=== PATIENT | male | born 1935 | race Caucasian/White ===

== ENCOUNTER 2016-05-24 08:00 | Emergency (ER) | payer OTHER ==
--- NOTE | 2016-05-24 10:40 | DIAGNOSTIC IMAGING REPORT ---
PROCEDURE: XR CHEST 1 VIEW INDICATION: HYPOTHERMIA TECHNIQUE: Portable AP view 10:00 a.m. COMPARISON: None. FINDINGS: Lungs are clear of infiltrate. There is a 2 cm nodule right lower lobe. Heart and mediastinum are normal. Thorax is normal. IMPRESSION: 1. No acute infiltrates. 2 cm right lower lobe nodule.
--- NOTE | 2016-05-24 11:21 | DIAGNOSTIC IMAGING REPORT ---
PROCEDURE: XR FOOT 3 VIEWS - LEFT INDICATION: TRAUMA/INJURY, initial encounter TECHNIQUE: Three views. COMPARISON: None. FINDINGS: Osteopenia. No fracture or dislocation. Severe first MTP joint degenerative changes. Small plantar calcaneal spur. Soft tissues are unremarkable. IMPRESSION: 1. No acute changes 2. 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
--- NOTE | 2016-05-24 14:53 | ED CLINICAL REPORT ---
Clinical Report - Physicians/Mid Levels [facility] [address] [place] [address] 05/24/2016 8:01 Patient: EDITH JUAN Time Seen: 08:24. Arrived- By private vehicle. Historian- patient. History limited by dementia. Physical Exam limited by dementia. HISTORY OF PRESENT ILLNESS Chief Complaint: hypothermia. This started last night and is still present. At its maximum, severity described as moderate. When seen in the E.D., severity described as moderate. Modifying factors. Not worsened by anything. Not relieved by anything. The patient has had fatigue, muscle aches and weakness. (patient is brought in by EMS. Apparently he has a history of dementia. EMS report that his daughter heard him moving around and saw the light turned on around midnight. Apparently she did not realize that he had departed their home. The patient does not recall the events of the night but apparently he was outside for approximately 5 hours. EMS report that he has abrasions on his legs and feet.). Similar symptoms previously: None. Recent medical care: Not recently seen/assessed. REVIEW OF SYSTEMS No cough, difficulty breathing, chest pain, nausea or vomiting. He has had chills and difficulty with urination (chronic). He sustained multiple small skin lacerations. All systems otherwise negative, except as recorded above. PAST HISTORY Hypertension. Elevated Cholesterol. Neuropathy. Diabetes Mellitus. Dementia. Medications: Lantus Subcutaneous. Atorvastatin Calcium Oral. Flomax Oral. Pristiq Oral. AmLODIPine Besylate Oral. Allergies: No Known Drug Allergy. SOCIAL HISTORY Smoker - current status unknown. He lives with a family member. ADDITIONAL NOTES The nursing notes have been reviewed. PHYSICAL EXAM Vital Signs: 05/24/2016 08:13 BP: 130/82. HR: 98. RR: 16. O2 saturation: 99%. Temp: 88.6 F. Have been reviewed. Appearance: Alert. He is disoriented and confused. Eyes: Pupils equal, round and reactive to light. ENT: Pharynx normal. Neck: Normal inspection. Neck supple. No JVD or carotid bruit. CVS: Normal heart rate and rhythm. Heart sounds normal. Respiratory: No respiratory distress. Breath sounds normal. Abdomen: No visible injury. Soft and nontender. Bowel sounds normal. No organomegaly. No mass. Skin: The patient has multiple medium superficial abrasions on the right knee, right foot, left elbow, left knee and left foot. LABS, X-RAYS, AND EKG Chest X-ray: No infiltrate. (1. No acute infiltrates. 2 cm right lower lobe nodule.). Views: AP. Technique: good. The X-rays were independently viewed by me, interpreted by the radiologist and discussed with the radiologist. Prior films were not available for comparison. Interpretation time: 1015. Lt Toes X-ray: No fracture. No air in the soft tissue. Severe degenerative joint disease. The X-rays were independently viewed by me and interpreted contemporaneously by me. Prior films were not available for comparison. Laboratory Tests: CBC w Diff: (MIKE: 05/24/2016 09:25) ( MsgRcvd 05/24/2016 09:41) Final results Test Result Flag Units (Reference) WHITE BLOOD COUNT 19.1 H K/uL (4.5-11.5) RED BLOOD COUNT 5.66 M/uL (4.50-5.90) HEMOGLOBIN 16.0 gm/dL (13.5-17.5) HEMATOCRIT 48.6 % (41.0-53.0) MEAN CELL VOLUME 86 fL (80-100) MEAN CORPUSCULAR HGB 28 pg (26-34) MEAN CORPUSCULAR HGB CONC 33 g/dL (31-37) RED CELL DISTRIBUTION WIDTH 12.8 % (11.6-14.8) PLATELET COUNT 249 K/uL (150-400) NEUTROPHIL % 87.1 H % (50-75) LYMPH % 4.7 L % (25-40) MONO % 8.0 % (3-14) EOSINOPHIL % 0.1 % (0-4) BASOPHIL % 0.1 % (0-2) PT with INR: (MIKE: 05/24/2016 09:25) ( MsgRcvd 05/24/2016 09:52) Final results Test Result Flag Units (Reference) INR 1.0 (0.8-1.2) Low Intensity Therapy: INR 1.5-2.0 PT range 18.5-23.1Mod.Intensity Therapy: INR 2.0-3.0 PT range 23.1-31.5High Intensity Therapy: INR 2.5-3.5 PT range 27.4-35.5High Intensity Therapy 2: INR 3.0-4.0 PT range 31.5-39.3 APTT 26 SECONDS (24-34) CMP: (MIKE: 05/24/2016 09:25) ( MsgRcvd 05/24/2016 10:28) Final results Test Result Flag Units (Reference) GLUCOSE 120 H mg/dL (70-110) BUN 19 H mg/dL (7-18) CREATININE 1.1 mg/dL (0.6-1.3) Estimated GFR >60 mL/min Estimated GFR- >60 mL/min Note: Persistent reduction over 3 months in eGFR<60 mL/min/1.73 m2 defines CKD. Patients with eGFR values>=60 mL/min/1.73 m2 may also have CKD if evidence ofpersistent proteinuria. Additional information may be foundat www.kidney.org. SODIUM 141 mmol/L (136-145) POTASSIUM 4.5 mmol/L (3.5-5.1) CHLORIDE 105 mmol/L (98-107) CARBON DIOXIDE 26 mmol/L (21-32) CALCIUM 8.7 mg/dL (8.5-10.1) TOTAL PROTEIN 7.3 g/dL (6.4-8.2) ALBUMIN 4.0 g/dL (3.3-5.0) BILIRUBIN, TOTAL 0.4 mg/dL (0.0-1.0) ALKALINE PHOSPHATASE 113 U/L (46-116) AST (SGOT) 26 U/L (15-37) ALT (SGPT) 28 U/L (12-78) LIPASE 655 H U/L (73-393) AMYLASE 99 U/L (25-115) TROPONIN I <0.05 ng/mL (0.00-1.5) TROPONIN REFERENCE RANGE:<0.1 NEGATIVE0.1-1.5 INDETERMINANT>1.5 POSITIVE CPK 1164 H U/L (24-260) CK-MB 4.9 H ng/mL (0.5-3.2) %CKMB 0.4 % (0.0-4.0) . PROGRESS AND PROCEDURES Course of Care: 09:09 05/24/16. the case was discussed with Dr. Jarquin at change of shift. We reviewed the patient's history and exam findings. He will follow up on the results of the patient's studies and will arrange an appropriate disposition for him. - MW 14:52 05/24/16. Pt feeling much better and back to baseline per daughters. WBC elevated, but no S/S of infection and no PNA, cellulitis, or UTI. Will f/u w/ PCP. 05/24/2016 13:33 BP: 129/51. HR: 88. RR: 16. O2 saturation: 98%. 05/24/2016 12:37 Temp: 97.7 F. Vital Signs: have been reviewed as normal. Disposition: Discharged home in good and improved condition. Condition: good. CLINICAL IMPRESSION Moderate hypothermia secondary to exposure. Multiple superficial abrasions to the right knee and left knee.Treatment of abrasion not delayed. No infection or abrasion with foreign body present. Mild leukocytosis. Neuropathy associated with diabetes type 2. INSTRUCTIONS Your Current Medications: CONTINUE TAKING THE FOLLOWING MEDICATIONS: AmLODIPine Besylate Oral. Atorvastatin Calcium Oral. Flomax Oral. Lantus Subcutaneous. Pristiq Oral. Prescription Medications: Bactroban 2% ointment: apply small amount to affected area three times daily until symptoms better. Dispense twenty-two (22) grams. No refills. Substitution is permissible. Diclofenac 50 mg tablets: take 1 tablet orally every 8 hours as needed for pain. Dispense fifteen (15). No refill. Gabapentin 300 mg capsules: take 1 orally every 8 hours. Dispense forty-five (45). Follow-up: Follow up with your doctor in about two days. Call for an appointment. (Electronically signed by Ruben Jarquin Dr. 05/24/2016 22:01)
--- NOTE | 2016-05-24 14:53 | ED NURSING NOTES ---
Clinical Report - Nurses [facility] [address] [place] [address] 05/24/2016 8:01 Patient: EDITH JUAN TRIAGE Triage time 0810. Acuity: LEVEL 2. Chief Complaint: FALL (unknown). Alert. --08:16 Nancie Diaz 08:13 05/24/16. BP: 130/82. HR: 98. RR: 16. O2 saturation: 99%. Temp: 88.6 F. Pain level now 0/10. --08:16 Nancie Diaz 08:25. --09:12 Nancie Diaz. Weight: 102 kg estimated. Height/Length: 72 inches Estimated. BMI: 30.5. --08:12 Nancie Diaz. Medications AmLODIPine Besylate Oral. --09:09 Nancie Diaz Pristiq Oral. --09:09 Nancie Diaz Flomax Oral. --09:09 Nancie Diaz Atorvastatin Calcium Oral. --09:09 Nancie Diaz Lantus Subcutaneous. --09:10 Nancie Diaz The following entry was struck by Nancie Diaz, 09:09 (05/24/16) Reason - other(family here with info). <<STRICKEN ENTRY-- Unknown. --08:15 Nancie Diaz --END STRIKE>>. Allergies No Known Drug Allergy. --09:10 Nancie Diaz The following entry was struck by Nancie Diaz, 09:10 (05/24/16) Reason - other. <<STRICKEN ENTRY-- Unable to Obtain. --08:15 Nancie iDaz --END STRIKE>>. History Arrived by EMS. Historian: EMS. Location of injuries: left elbow, right knee, left knee and left foot. ( Pt found sitting in driveway this am at home, dementia, hypothermic, injuries as noted). Treatment MANAGER BUSINESS OPERATIONS: (warm packs). Trauma activation: Pre-hospital notification of patient arrival was received. --08:16 Nancie Diaz SOCIAL HX: ( Alethea vo applied immediately). --09:12 Nancie Diaz. PROBLEMS: Hypertension. Elevated Cholesterol. Neuropathy. Diabetes Mellitus. Dementia. --09:10 Nancie Diaz. Interventions ID band on patient. To treatment room. --08:16 Nancie Diaz. PHYSICAL ASSESSMENT To room via stretcher. Patient gowned. GENERAL / NEURO / PSYCH: Alert. Appears in distress. He has had numbness (bilat lower extremities 2nd diabetes). HEENT: Pupils equal, round and reactive to light. Head non-tender. RESPIRATORY: Respirations not labored. Chest nontender. Breath sounds within normal limits. CVS: Normal heart rate and rhythm. Pulses within normal limits. Capillary refill is greater than 2 seconds. GI / : Abdominal distention. Abdomen soft and nontender. EXTREMITIES: Left elbow: swelling, ecchymosis and multiple small abrasions. Right knee: swelling, ecchymosis and multiple large abrasions. Left knee: swelling, ecchymosis and multiple large abrasions. Left foot: ecchymosis and multiple small abrasions. SKIN: Skin is cool. ( mottled). --08:25 Nancie Diaz. NURSING PROGRESS NOTES 09:05/24/2016 Site #1 started prior to arrival by EMS via IV in the left antecubital space with an 18g angiocath. --09:06 Nancie Diaz 09:05/24/2016 Started bag #1 500 mL IV Fluids IV NS (Saline); bolus of 500 mL wide open via site #1. Confirmed 5 rights. IV patency established. IV site checked: no pain, redness, or swelling. IV flushed thoroughly pre- and post-medication administration. --09:07 Nancie Diaz 09:11 05/24/16. BP: 125/49. HR: 91. RR: 20. O2 saturation: 96%. Temp: 92.2 F. Pain level now 0/10. --09:12 Nancie Diza Cardiac rhythm: normal sinus rhythm. Reassessment after intervention. He is calm and resting quietly. Overall patient status is improved- he states feels better. ( Family here and at bedside). --09:12 Nancie Diaz The patient is calm and resting quietly. Overall patient status is improved- he states feels better. ( Family remains at bedside). GENERAL / NEURO / PSYCH: Alert. Patient and family informed about reason for wait and about plan of care. Patient waiting for lab and radiology results. --10:11 Nancie Diaz 10:26 05/24/16. Temp: 95.5 F. --10:26 Nancie Diaz 10:44 05/24/2016 Started bag #1 1000 mL IV Fluids IV NS (Saline); at 200 mL/hr over 1 hour(s) via site #1 --10:44 Nancie Diaz 12:37 05/24/16. Temp: 97.7 F (oral). --12:38 Nancie Diaz ( Pt much improved, ate entire lunch tray, joking with family and staff, wee bag placed on penis for UA collection, able to stand at bedside for bed changing, alethea acosta). --12:38 Nancie Diaz 13:33 05/24/16. BP: 129/51. HR: 88. RR: 16. O2 saturation: 98%. --13:33 Nancie Diaz Overall patient status is improved- he states feels better. --13:33 Nancie Diaz 15:05/24/2016 Site #1 removed upon discharge. Pressure dressing applied. --15: Nancie Diaz 15:05/24/2016 IV Fluids IV NS Discontinued: bag #1 completed upon discharge. Total amount infused: 500 mL. --15: Nanice Diaz 15:05/24/2016 IV Fluids IV NS Discontinued: bag #1 completed. Total amount infused: 500 mL. IV patency established. IV site checked: no pain, redness, or swelling. IV flushed thoroughly. --15: Nancie Diaz. DISPOSITION / DISCHARGE Departure time: 1530. Condition at departure: improved and stable. Discharge instructions provided and reviewed with the family. Reviewed medication(s). Family verbalized understanding. Written instructions provided in Swedish. The patient was discharged by the physician. He was discharged home and accompanied by family. He left the Emergency Department in a wheelchair and via private vehicle. Family member driving. --15:59 Nancie Diaz 15:58 05/24/16. BP: 128/56. HR: 88. RR: 16. O2 saturation: 99%. Temp: 97.7 F. Pain level now 06/23. --15:59 Nancie Diaz. Locked/Released at 05/24/2016 15:59 by Nancie Diaz,
--- NOTE | 2016-05-24 14:53 | ED NURSING NOTES ---
Clinical Report - Nurses [facility] [address] [place] [address] 05/24/2016 8:01 Patient: EDITH JUAN TRIAGE Triage time 0810. Acuity: LEVEL 2. Chief Complaint: FALL (unknown). Alert. --08:16 Nancie Diaz 08:13 05/24/16. BP: 130/82. HR: 98. RR: 16. O2 saturation: 99%. Temp: 88.6 F. Pain level now 0/10. --08:16 Nancie Diaz 08:25. --09:12 Nancie Diaz. Weight: 102 kg estimated. Height/Length: 72 inches Estimated. BMI: 30.5. --08:12 Nancie Diaz. Medications AmLODIPine Besylate Oral. --09:09 Nancie Diaz Pristiq Oral. --09:09 Nancie Diaz Flomax Oral. --09:09 Nancie Diaz Atorvastatin Calcium Oral. --09:09 Nancie Diaz Lantus Subcutaneous. --09:10 Nancie Diaz The following entry was struck by Nancie Diaz, 09:09 (05/24/16) Reason - other(family here with info). <<STRICKEN ENTRY-- Unknown. --08:15 Nancie Diaz --END STRIKE>>. Allergies No Known Drug Allergy. --09:10 Nancie Diaz The following entry was struck by Nancie Diaz, 09:10 (05/24/16) Reason - other. <<STRICKEN ENTRY-- Unable to Obtain. --08:15 Nancie Diaz --END STRIKE>>. History Arrived by EMS. Historian: EMS. Location of injuries: left elbow, right knee, left knee and left foot. ( Pt found sitting in driveway this am at home, dementia, hypothermic, injuries as noted). Treatment DENTAL SPECIALIST: (warm packs). Trauma activation: Pre-hospital notification of patient arrival was received. --08:16 Nancie Diaz SOCIAL HX: ( Alethea vo applied immediately). --09:12 Nancie Diaz. PROBLEMS: Hypertension. Elevated Cholesterol. Neuropathy. Diabetes Mellitus. Dementia. --09:10 Nancie Diaz. Interventions ID band on patient. To treatment room. --08:16 Nancie Diaz. PHYSICAL ASSESSMENT To room via stretcher. Patient gowned. GENERAL / NEURO / PSYCH: Alert. Appears in distress. He has had numbness (bilat lower extremities 2nd diabetes). HEENT: Pupils equal, round and reactive to light. Head non-tender. RESPIRATORY: Respirations not labored. Chest nontender. Breath sounds within normal limits. CVS: Normal heart rate and rhythm. Pulses within normal limits. Capillary refill is greater than 2 seconds. GI / : Abdominal distention. Abdomen soft and nontender. EXTREMITIES: Left elbow: swelling, ecchymosis and multiple small abrasions. Right knee: swelling, ecchymosis and multiple large abrasions. Left knee: swelling, ecchymosis and multiple large abrasions. Left foot: ecchymosis and multiple small abrasions. SKIN: Skin is cool. ( mottled). --08:25 Nancie Diaz. NURSING PROGRESS NOTES 09:05/24/2016 Site #1 started prior to arrival by EMS via IV in the left antecubital space with an 18g angiocath. --09:06 Nancie Diaz 09:05/24/2016 Started bag #1 500 mL IV Fluids IV NS (Saline); bolus of 500 mL wide open via site #1. Confirmed 5 rights. IV patency established. IV site checked: no pain, redness, or swelling. IV flushed thoroughly pre- and post-medication administration. --09:07 Nancie Diaz 09:11 05/24/16. BP: 125/49. HR: 91. RR: 20. O2 saturation: 96%. Temp: 92.2 F. Pain level now 0/10. --09:12 Nancie Diaz Cardiac rhythm: normal sinus rhythm. Reassessment after intervention. He is calm and resting quietly. Overall patient status is improved- he states feels better. ( Family here and at bedside). --09:12 Nancie Diaz The patient is calm and resting quietly. Overall patient status is improved- he states feels better. ( Family remains at bedside). GENERAL / NEURO / PSYCH: Alert. Patient and family informed about reason for wait and about plan of care. Patient waiting for lab and radiology results. --10:11 Nancie Diaz 10:26 05/24/16. Temp: 95.5 F. --10:26 Nancie Diaz 10:44 05/24/2016 Started bag #1 1000 mL IV Fluids IV NS (Saline); at 200 mL/hr over 1 hour(s) via site #1 --10:44 Nancie Diaz 12:37 05/24/16. Temp: 97.7 F (oral). --12:38 Nancie Diaz ( Pt much improved, ate entire lunch tray, joking with family and staff, wee bag placed on penis for UA collection, able to stand at bedside for bed changing, alethea acosta). --12:38 Nancie Diaz 13:33 05/24/16. BP: 129/51. HR: 88. RR: 16. O2 saturation: 98%. --13:33 Nancie Diaz Overall patient status is improved- he states feels better. --13:33 Nancie Diaz 15:05/24/2016 Site #1 removed upon discharge. Pressure dressing applied. --15: Nancie Diaz 15:05/24/2016 IV Fluids IV NS Discontinued: bag #1 completed upon discharge. Total amount infused: 500 mL. --15: Nancie Diaz 15:05/24/2016 IV Fluids IV NS Discontinued: bag #1 completed. Total amount infused: 500 mL. IV patency established. IV site checked: no pain, redness, or swelling. IV flushed thoroughly. --15: Nancie Diaz. DISPOSITION / DISCHARGE Departure time: 1530. Condition at departure: improved and stable. Discharge instructions provided and reviewed with the family. Reviewed medication(s). Family verbalized understanding. Written instructions provided in Divehi. The patient was discharged by the physician. He was discharged home and accompanied by family. He left the Emergency Department in a wheelchair and via private vehicle. Family member driving. --15:59 Nancie Diaz 15:58 05/24/16. BP: 128/56. HR: 88. RR: 16. O2 saturation: 99%. Temp: 97.7 F. Pain level now 06/23. --15:59 Nancie Diaz. Locked/Released at 05/24/2016 15:59 by Nancie Diaz,
--- NOTE | 2016-05-24 14:53 | ED ORDER SUMMARY ---
..... Patient: EDITH JAUN OrderSheet [facility] VisitID: [id number] [address] [place], [place] [id number] 80y, M Registration Date/Time: 05/24/2016 ORDER SHEET Weight: 102.0 kg (estimated) Allergies: No Known Drug Allergy GENERAL ORDERS: Chest 1V Urgent (08:57 05/24/2016 Jamey BROWN) (Ack 9:11 LNations ER Tech1) (10:49 NHouse ER Tech1) Sld Teacher (Continuous) (08:58 05/24/2016 Jamey BROWN) (9:05 EBonham) CBC w Diff Urgent (08:58 05/24/2016 Jamey BROWN) (Ack 9:10 LNations ER Tech1) (10:49 NHouse ER Tech1) CMP Urgent (08:58 05/24/2016 Jamey BROWN) (Ack 9:10 LNations ER Tech1) (10:49 NHouse ER TechSue) UA-Culture if indicated Urgent (08:58 05/24/2016 Jamey BROWN) (Ack 9:10 LNations ER TechSue) (14:44 NHouse ER Tech1) PT with INR Urgent (08:58 05/24/2016 Jamey BROWN) (Ack 9:10 LNations ER Tech1) (10:49 NHouse ER Tech1) PTT Urgent (08:58 05/24/2016 Jamey BROWN) (Ack 9:10 LNations ER Tech1) (10:49 NHouse ER Tech1) Amylase Urgent (08:58 05/24/2016 Jamey BROWN) (Ack 9:10 LNations ER Tech1) (10:49 NHouse ER Tech1) Lipase Urgent (08:58 05/24/2016 Jamey BROWN) (Ack 9:11 LNations ER TechSue) (10:49 NHouse ER Tech1) CPK Urgent (08:58 05/24/2016 Jamey BROWN) (Ack 9:11 LNations ER TechSue) (10:49 NHouse ER TechSue) Troponin-I Urgent (08:58 05/24/2016 Jamey BROWN) (Ack 9:11 LNations ER Tech1) (10:49 NHouse ER Tech1) Oxygen (2 L/min) (NC) (08:58 05/24/2016 Jamey BROWN) (9:05 [facility]) Pulse oximeter (08:58 05/24/2016 Jamey BROWN) (9:[facility] EKG - ER Stat (08:58 05/24/2016 Jamey BROWN) (Ack 9:09 LNations ER Tech1) (9:23 LNations ER Tech1) GIO Hugger (08:58 05/24/2016 Jamey BROWN) (9:06 EBreplaced by [facility]) Foot 3V Left Urgent (10:30 05/24/2016 Radha Flores) (Ack 10:38 AZouse ER Tech1) (10:49 AZouse ER Tech1) MEDICATION ORDERS: IV FLUIDS: IV NS : initial bolus 500 mL (1000 mL/hr), then 125 mL/hr for 4h (NOW); Urgent (08:58 05/24/2016 Jamey BROWN) (9:07 [facility] IV NS : initial bolus none -, then 200 mL/hr for X1 (NOW) (10:33 05/24/2016 Radha Flores) (10:44 [facility]) ORDER SHEET NOTES: [Electronically signed by Nancie Diaz (15:59 05/24/2016)] [Electronically signed by Ruben Jarquin Dr. (22:01 05/24/2016)] [Electronically locked/signed by Nancie Diaz (15:59 05/24/2016)]
--- NOTE | 2016-05-24 14:53 | ED ORDER SUMMARY ---
..... Patient: EDITH JUAN OrderSheet [facility] VisitID: [id number] [address] [place], [place] [id number] 80y, M Registration Date/Time: 05/24/2016 ORDER SHEET Weight: 102.0 kg (estimated) Allergies: No Known Drug Allergy GENERAL ORDERS: Chest 1V Urgent (08:57 05/24/2016 Jamey BROWN) (Ack 9:11 LNations ER Tech1) (10:49 NHouse ER Tech1) Butcher Or Smallgoods Maker (Continuous) (08:58 05/24/2016 Jamey BROWN) (9:05 EBonham) CBC w Diff Urgent (08:58 05/24/2016 Jamey BROWN) (Ack 9:10 LNations ER Tech1) (10:49 NHouse ER Tech1) CMP Urgent (08:58 05/24/2016 Jamey BROWN) (Ack 9:10 LNations ER Tech1) (10:49 NHouse ER TechSue) UA-Culture if indicated Urgent (08:58 05/24/2016 Jamey BROWN) (Ack 9:10 LNations ER TechSue) (14:44 NHouse ER Tech1) PT with INR Urgent (08:58 05/24/2016 Jamey BROWN) (Ack 9:10 LNations ER Tech1) (10:49 NHouse ER Tech1) PTT Urgent (08:58 05/24/2016 Jamey BROWN) (Ack 9:10 LNations ER Tech1) (10:49 NHouse ER Tech1) Amylase Urgent (08:58 05/24/2016 Jamey BROWN) (Ack 9:10 LNations ER Tech1) (10:49 NHouse ER Tech1) Lipase Urgent (08:58 05/24/2016 Jamey BROWN) (Ack 9:11 LNations ER TechSue) (10:49 NHouse ER Tech1) CPK Urgent (08:58 05/24/2016 Jamey BROWN) (Ack 9:11 LNations ER TechSue) (10:49 NHouse ER TechSue) Troponin-I Urgent (08:58 05/24/2016 Jamey BROWN) (Ack 9:11 LNations ER Tech1) (10:49 NHouse ER Tech1) Oxygen (2 L/min) (NC) (08:58 05/24/2016 Jamey BROWN) ([facility] Pulse oximeter (08:58 05/24/2016 Jamey BROWN) (9:[facility] EKG - ER Stat (08:58 05/24/2016 Jamey BROWN) (Ack 9:09 LNations ER Tech1) (9:23 LNations ER Tech1) GIO Hugger (08:58 05/24/2016 Jamey BROWN) (9:06 [facility]) Foot 3V Left Urgent (10:30 05/24/2016 Radha Flores) (Ack 10:38 IAouse ER Tech1) (10:49 IAouse ER Tech1) MEDICATION ORDERS: IV FLUIDS: IV NS : initial bolus 500 mL (1000 mL/hr), then 125 mL/hr for 4h (NOW); Urgent (08:58 05/24/2016 Jamey BROWN) (9:07 [facility] IV NS : initial bolus none -, then 200 mL/hr for X1 (NOW) (10:33 05/24/2016 Radha Flores) (10:44 [facility]) ORDER SHEET NOTES: [Electronically signed by Nancie Diaz (15:59 05/24/2016)] [Electronically signed by Ruben Jarquin Dr. (22:01 05/24/2016)] [Electronically locked/signed by Nancie Diaz (15:59 05/24/2016)]
--- NOTE | 2016-05-24 22:02 | ED MAR SUMMARY ---
..... Medication Administration Record [facility] [address] [place] [address] Patient: EDITH JUAN Visit ID: [id number] 80y, M Weight: 102.0 kg Height/Length: 72 in BMI: 30.5 ALLERGIES: No Known Drug Allergy Start 09:06 05/24/2016 Nancie Diaz,, Stop 15:05/24/2016 Nancie Diaz, Medication Administered: IV NS (SALINE), Dose: IV Fluids, Bolus: 500 mL wide open, Dispensed: 500 mL bag, Site: #1 left AC. Medication Ordered: IV NS : initial bolus 500 mL (1000 mL/hr), then 125 mL/hr for 4h (NOW); Urgent. Start 10:44 05/24/2016 Nancie Diaz,, Stop 15:01 05/24/2016 Nancie Diaz, Medication Administered: IV NS (SALINE), Dose: IV Fluids over 1 hour(s), Rate: 200 mL/hr, Dispensed: 1000 mL bag, Site: #1 left AC. Medication Ordered: IV NS : initial bolus none -, then 200 mL/hr for X1 (NOW).
--- NOTE | 2016-05-24 22:02 | ED MED RECONCILIATION SUMMARY ---
Patient: EDITH JUAN Medication Reconciliation Report [facility] VisitID: [id number] [address] [place] [address] 80y, M Registration Date/Time: 05/24/2016 Weight: 102.0 kg Height/Length: 72 in. BMI: 30.5 ALLERGIES: No Known Drug Allergy The patient's Home Medications are listed below: CONTINUE TAKING THE FOLLOWING MEDICATIONS: AmLODIPine Besylate Oral Atorvastatin Calcium Oral Flomax Oral Lantus Subcutaneous Pristiq Oral The source(s) of the original Home Medication information: Not obtained. The following Medications were given to the patient in the Emergency Department: IV NS IV Fluids bolus 500 mL wide open, administered: 05/24/2016 9:06:00 AM IV NS IV Fluids bolus 0, then 200 mL/hr, administered: 05/24/2016 10:44:00 AM The following Medications were prescribed to the patient: Bactroban 2% ointment: apply small amount to affected area three times daily until symptoms better. Dispense twenty-two (22) grams. No refills. Substitution is permissible. -- Ruben Jarquin Dr. Diclofenac 50 mg tablets: take 1 tablet orally every 8 hours as needed for pain. Dispense fifteen (15). No refill. -- Ruben Jarquin Dr. Gabapentin 300 mg capsules: take 1 orally every 8 hours. Dispense forty-five (45). -- Ruben Jarquin Dr.
--- NOTE | 2016-05-24 22:02 | ED MED RECONCILIATION SUMMARY ---
Patient: EDITH JUAN Medication Reconciliation Report [facility] VisitID: [id number] [address] [place] [address] 80y, M Registration Date/Time: 05/24/2016 Weight: 102.0 kg Height/Length: 72 in. BMI: 30.5 ALLERGIES: No Known Drug Allergy The patient's Home Medications are listed below: CONTINUE TAKING THE FOLLOWING MEDICATIONS: AmLODIPine Besylate Oral Atorvastatin Calcium Oral Flomax Oral Lantus Subcutaneous Pristiq Oral The source(s) of the original Home Medication information: Not obtained. The following Medications were given to the patient in the Emergency Department: IV NS IV Fluids bolus 500 mL wide open, administered: 05/24/2016 9:06:00 AM IV NS IV Fluids bolus 0, then 200 mL/hr, administered: 05/24/2016 10:44:00 AM The following Medications were prescribed to the patient: Bactroban 2% ointment: apply small amount to affected area three times daily until symptoms better. Dispense twenty-two (22) grams. No refills. Substitution is permissible. -- Ruben Jarquin Dr. Diclofenac 50 mg tablets: take 1 tablet orally every 8 hours as needed for pain. Dispense fifteen (15). No refill. -- Ruben Jarquin Dr. Gabapentin 300 mg capsules: take 1 orally every 8 hours. Dispense forty-five (45). -- Ruben Jarquin Dr.
--- NOTE | 2016-05-24 22:02 | ED DISCHARGE INSTRUCTIONS ---
Patient: EDITH JUAN General Instructions [facility] VisitID: [id number] [address] [place] [address] 80y, M Registration Date/Time: 05/24/2016 Moderate hypothermia secondary to exposure. Multiple superficial abrasions to the right knee and left knee.Treatment of abrasion not delayed. No infection or abrasion with foreign body present. Mild leukocytosis. Neuropathy associated with diabetes type 2. INSTRUCTIONS Your Current Medications: CONTINUE TAKING THE FOLLOWING MEDICATIONS: AmLODIPine Besylate Oral. Atorvastatin Calcium Oral. Flomax Oral. Lantus Subcutaneous. Pristiq Oral. Prescription Medications: Bactroban 2% ointment: apply small amount to affected area three times daily until symptoms better. Dispense twenty-two (22) grams. No refills. Substitution is permissible. Diclofenac 50 mg tablets: take 1 tablet orally every 8 hours as needed for pain. Dispense fifteen (15). No refill. Gabapentin 300 mg capsules: take 1 orally every 8 hours. Dispense forty-five (45). Follow-up: Follow up with your doctor in about two days. Call for an appointment. ADDITIONAL INFORMATION Abrasions Abrasions are skin scrapes. Their treatment depends on how large and deep the abrasion is. Home Care: If you were given a bandage, change it once a day. If your bandage sticks to the wound, soak it in warm water until it loosens. Wash the area with soap and water to remove all the cream/ointment. You may do this in a sink, under a tub faucet or shower. Rinse off the soap and pat dry with a clean towel. Reapply cream/ointment according to your doctor's instructions. This will prevent infection and help prevent the bandage from sticking. Cover the wound with a fresh non-stick bandage (Telfa). Repeat steps 1 to 4 daily, or as directed by your doctor. If the bandage becomes wet or dirty, change it as soon as possible. You may use acetaminophen (Tylenol) or ibuprofen (Motrin, Advil) to control pain, unless another pain medicine was prescribed. [ NOTE : If you have chronic liver or kidney disease or ever had a stomach ulcer or GI bleeding, talk with your doctor before using these medicines.] Do not use ibuprofen in children under six months of age. Follow Up with your physician or this facility as directed by our staff. Most skin wounds heal within ten days. However, an infection may occur despite proper treatment. Therefore, look for the early signs of infection listed below. Get Prompt Medical Attention if any of the following occur: Increasing pain in the wound Increasing redness or swelling Pus coming from the wound Fever of 100.4F (38C) or higher, or as directed by your healthcare provider Peripheral Neuropathy Peripheral Neuropathy is a condition that affects the nerves of the arms or legs. It causes a change in physical feeling. Sometimes it causes weakness in the muscles. You may feel tingling, numbness or shooting pains (especially at night). You may be sensitive to light touch or temperature changes. Neuropathy may be caused by being exposed to certain drugs or chemicals, or because of a vitamin deficiency. It can be a complication of a chronic disease such as diabetes or alcoholism. A ruptured disk with pressure on the spinal nerve may also cause this condition. Home Care: 1) You may take acetaminophen (Tylenol) or ibuprofen (Advil, Motrin) for pain, unless another pain medicine has been prescribed. 2) If the neuropathy affects your feet, keep your toenails trimmed and wash your feet often. Wear shoes that fit well. Doing so avoids pressure points, blisters and ulcers. Due to a loss of feeling, you may not notice injuries, so look at your feet carefully (including the soles of your feet and between your toes) at least once a week. Tell your doctor if you have any open wounds or signs of infection. 3) If vitamins have been prescribed, be sure to remind yourself to take them daily. Follow Up with your doctor or as advised by our staff. You may need further testing to find out the exact cause of your neuropathy. Get Prompt Medical Attention if any of the following occur: -- Redness, swelling or pus coming from the toes or feet -- Loss of bowel or bladder control (if this is a new symptom for you) -- Muscle weakness (if this is a new symptom for you) Mupirocin Topical ointment What is this medicine? MUPIROCIN (myoo PEER oh sin) is an antibiotic. It is used on the skin to treat skin infections. How should I use this medicine? This medicine is for external use only. Follow the directions on the prescription label. Wash your hands before and after use. Before applying, wash the affected area with mild soap and water and pat dry. Apply a small amount to the affected area and rub gently. You can cover the area with a gauze dressing. Do not get this medicine in your eyes. If you do, rinse out with plenty of cool tap water. Do not use your medicine more often than directed. Finish the full course of medicine prescribed by your doctor or health palliative care nurse even if you think your condition is better. Do not use over large areas of burnt skin. Talk to your quality assurance lead regarding the use of this medicine in children. Special care may be needed. What side effects may I notice from receiving this medicine? Side effects that you should report to your doctor or health palliative care nurse as soon as possible: skin rash, redness, continued swelling, burning, itching, stinging, or pain Side effects that usually do not require medical attention (report to your doctor or health palliative care nurse if they continue or are bothersome): dry skin, itching What may interact with this medicine? Interactions are not expected. Do not use any other skin products on the affected area without telling your doctor or health palliative care nurse. What if I miss a dose? If you miss a dose, take it as soon as you can. If it is almost time for your next dose, take only that dose. Do not take double or extra doses. Where should I keep my medicine? Keep out of the reach of children. Store at room temperature between 20 and 25 degrees C (68 and 77 degrees F). Throw away any unused medicine after the expiration date. What should I tell my health care provider before I take this medicine? They need to know if you have any of these conditions: an unusual or allergic reaction to mupirocin, polyethylene glycol (PEG), or other topical antibiotic medicine or trying to get breast-feeding What should I watch for while using this medicine? Tell your doctor or health palliative care nurse if your skin condition does not begin to improve within 3 to 5 days. Gabapentin Oral tablet What is this medicine? GABAPENTIN (GA ba pen tin) is used to control partial seizures in adults with epilepsy. It is also used to treat certain types of nerve pain. How should I use this medicine? Take this medicine by mouth. Swallow it with a drink of water. Follow the directions on the prescription label. If this medicine upsets your stomach, take it with food or milk. Take your medicine at regular intervals. Do not take it more often than directed. If you are directed to break the 600 or 800 mg tablets in half as part of your dose, the extra half tablet should be used for the next dose. If you have not used the extra half tablet within 3 days, it should be thrown away. A special MedGuide will be given to you by the pharmacist with each prescription and refill. Be sure to read this information carefully each time. Talk to your quality assurance lead regarding the use of this medicine in children. Special care may be needed. What side effects may I notice from receiving this medicine? Side effects that you should report to your doctor or health palliative care nurse as soon as possible: allergic reactions like skin rash, itching or hives, swelling of the face, lips, or tongue worsening of mood, thoughts or actions of suicide or dying Side effects that usually do not require medical attention (report to your doctor or health palliative care nurse if they continue or are bothersome): constipation difficulty walking or controlling muscle movements dizziness nausea slurred speech tiredness tremors weight gain What may interact with this medicine? Do not take this medicine with any of the following medications: other gabapentin products This medicine may also interact with the following medications: alcohol antacids antihistamines for allergy, cough and cold certain medicines for anxiety or sleep certain medicines for depression or psychotic disturbances homatropine; hydrocodone naproxen narcotic medicines (opiates) for pain phenothiazines like chlorpromazine, mesoridazine, prochlorperazine, thioridazine What if I miss a dose? If you miss a dose, take it as soon as you can. If it is almost time for your next dose, take only that dose. Do not take double or extra doses. Where should I keep my medicine? Keep out of reach of children. Store at room temperature between 15 and 30 degrees C (59 and 86 degrees F). Throw away any unused medicine after the expiration date. What should I tell my health care provider before I take this medicine? They need to know if you have any of these conditions: kidney disease suicidal thoughts, plans, or attempt; a previous suicide attempt by you or a family member an unusual or allergic reaction to gabapentin, other medicines, foods, dyes, or preservatives or trying to get breast-feeding What should I watch for while using this medicine? Visit your doctor or health palliative care nurse for regular checks on your progress. You may want to keep a record at home of how you feel your condition is responding to treatment. You may want to share this information with your doctor or health palliative care nurse at each visit. You should contact your doctor or health palliative care nurse if your seizures get worse or if you have any new types of seizures. Do not stop taking this medicine or any of your seizure medicines unless instructed by your doctor or health palliative care nurse. Stopping your medicine suddenly can increase your seizures or their severity. Wear a medical identification bracelet or chain if you are taking this medicine for seizures, and carry a card that lists all your medications. You may get drowsy, dizzy, or have blurred vision. Do not drive, use machinery, or do anything that needs mental alertness until you know how this medicine affects you. To reduce dizzy or fainting spells, do not sit or stand up quickly, especially if you are an older patient. Alcohol can increase drowsiness and dizziness. Avoid alcoholic drinks. Your mouth may get dry. Chewing sugarless gum or sucking hard candy, and drinking plenty of water will help. The use of this medicine may increase the chance of suicidal thoughts or actions. Pay special attention to how you are responding while on this medicine. Any worsening of mood, or thoughts of suicide or dying should be reported to your health palliative care nurse right away. Women who become while using this medicine may enroll in the [place] Registry by calling . This registry collects information about the safety of antiepileptic drug use during . You have been given the following additional information: Abrasion Neuropathy, Peripheral Mupirocin Topical ointment Gabapentin Oral tablet (Electronically signed by Ruben Jarquin Dr. 05/24/2016 22:01)
--- NOTE | 2016-05-24 22:02 | ED DISCHARGE INSTRUCTIONS ---
Patient: EDITH JUAN General Instructions [facility] VisitID: [id number] [address] [place] [address] 80y, M Registration Date/Time: 05/24/2016 Moderate hypothermia secondary to exposure. Multiple superficial abrasions to the right knee and left knee.Treatment of abrasion not delayed. No infection or abrasion with foreign body present. Mild leukocytosis. Neuropathy associated with diabetes type 2. INSTRUCTIONS Your Current Medications: CONTINUE TAKING THE FOLLOWING MEDICATIONS: AmLODIPine Besylate Oral. Atorvastatin Calcium Oral. Flomax Oral. Lantus Subcutaneous. Pristiq Oral. Prescription Medications: Bactroban 2% ointment: apply small amount to affected area three times daily until symptoms better. Dispense twenty-two (22) grams. No refills. Substitution is permissible. Diclofenac 50 mg tablets: take 1 tablet orally every 8 hours as needed for pain. Dispense fifteen (15). No refill. Gabapentin 300 mg capsules: take 1 orally every 8 hours. Dispense forty-five (45). Follow-up: Follow up with your doctor in about two days. Call for an appointment. ADDITIONAL INFORMATION Abrasions Abrasions are skin scrapes. Their treatment depends on how large and deep the abrasion is. Home Care: If you were given a bandage, change it once a day. If your bandage sticks to the wound, soak it in warm water until it loosens. Wash the area with soap and water to remove all the cream/ointment. You may do this in a sink, under a tub faucet or shower. Rinse off the soap and pat dry with a clean towel. Reapply cream/ointment according to your doctor's instructions. This will prevent infection and help prevent the bandage from sticking. Cover the wound with a fresh non-stick bandage (Telfa). Repeat steps 1 to 4 daily, or as directed by your doctor. If the bandage becomes wet or dirty, change it as soon as possible. You may use acetaminophen (Tylenol) or ibuprofen (Motrin, Advil) to control pain, unless another pain medicine was prescribed. [ NOTE : If you have chronic liver or kidney disease or ever had a stomach ulcer or GI bleeding, talk with your doctor before using these medicines.] Do not use ibuprofen in children under six months of age. Follow Up with your physician or this facility as directed by our staff. Most skin wounds heal within ten days. However, an infection may occur despite proper treatment. Therefore, look for the early signs of infection listed below. Get Prompt Medical Attention if any of the following occur: Increasing pain in the wound Increasing redness or swelling Pus coming from the wound Fever of 100.4F (38C) or higher, or as directed by your healthcare provider Peripheral Neuropathy Peripheral Neuropathy is a condition that affects the nerves of the arms or legs. It causes a change in physical feeling. Sometimes it causes weakness in the muscles. You may feel tingling, numbness or shooting pains (especially at night). You may be sensitive to light touch or temperature changes. Neuropathy may be caused by being exposed to certain drugs or chemicals, or because of a vitamin deficiency. It can be a complication of a chronic disease such as diabetes or alcoholism. A ruptured disk with pressure on the spinal nerve may also cause this condition. Home Care: 1) You may take acetaminophen (Tylenol) or ibuprofen (Advil, Motrin) for pain, unless another pain medicine has been prescribed. 2) If the neuropathy affects your feet, keep your toenails trimmed and wash your feet often. Wear shoes that fit well. Doing so avoids pressure points, blisters and ulcers. Due to a loss of feeling, you may not notice injuries, so look at your feet carefully (including the soles of your feet and between your toes) at least once a week. Tell your doctor if you have any open wounds or signs of infection. 3) If vitamins have been prescribed, be sure to remind yourself to take them daily. Follow Up with your doctor or as advised by our staff. You may need further testing to find out the exact cause of your neuropathy. Get Prompt Medical Attention if any of the following occur: -- Redness, swelling or pus coming from the toes or feet -- Loss of bowel or bladder control (if this is a new symptom for you) -- Muscle weakness (if this is a new symptom for you) Mupirocin Topical ointment What is this medicine? MUPIROCIN (myoo PEER oh sin) is an antibiotic. It is used on the skin to treat skin infections. How should I use this medicine? This medicine is for external use only. Follow the directions on the prescription label. Wash your hands before and after use. Before applying, wash the affected area with mild soap and water and pat dry. Apply a small amount to the affected area and rub gently. You can cover the area with a gauze dressing. Do not get this medicine in your eyes. If you do, rinse out with plenty of cool tap water. Do not use your medicine more often than directed. Finish the full course of medicine prescribed by your doctor or health cardiac care nurse even if you think your condition is better. Do not use over large areas of burnt skin. Talk to your knitter hand regarding the use of this medicine in children. Special care may be needed. What side effects may I notice from receiving this medicine? Side effects that you should report to your doctor or health cardiac care nurse as soon as possible: skin rash, redness, continued swelling, burning, itching, stinging, or pain Side effects that usually do not require medical attention (report to your doctor or health cardiac care nurse if they continue or are bothersome): dry skin, itching What may interact with this medicine? Interactions are not expected. Do not use any other skin products on the affected area without telling your doctor or health cardiac care nurse. What if I miss a dose? If you miss a dose, take it as soon as you can. If it is almost time for your next dose, take only that dose. Do not take double or extra doses. Where should I keep my medicine? Keep out of the reach of children. Store at room temperature between 20 and 25 degrees C (68 and 77 degrees F). Throw away any unused medicine after the expiration date. What should I tell my health care provider before I take this medicine? They need to know if you have any of these conditions: an unusual or allergic reaction to mupirocin, polyethylene glycol (PEG), or other topical antibiotic medicine or trying to get breast-feeding What should I watch for while using this medicine? Tell your doctor or health cardiac care nurse if your skin condition does not begin to improve within 3 to 5 days. Gabapentin Oral tablet What is this medicine? GABAPENTIN (GA ba pen tin) is used to control partial seizures in adults with epilepsy. It is also used to treat certain types of nerve pain. How should I use this medicine? Take this medicine by mouth. Swallow it with a drink of water. Follow the directions on the prescription label. If this medicine upsets your stomach, take it with food or milk. Take your medicine at regular intervals. Do not take it more often than directed. If you are directed to break the 600 or 800 mg tablets in half as part of your dose, the extra half tablet should be used for the next dose. If you have not used the extra half tablet within 3 days, it should be thrown away. A special MedGuide will be given to you by the pharmacist with each prescription and refill. Be sure to read this information carefully each time. Talk to your knitter hand regarding the use of this medicine in children. Special care may be needed. What side effects may I notice from receiving this medicine? Side effects that you should report to your doctor or health cardiac care nurse as soon as possible: allergic reactions like skin rash, itching or hives, swelling of the face, lips, or tongue worsening of mood, thoughts or actions of suicide or dying Side effects that usually do not require medical attention (report to your doctor or health cardiac care nurse if they continue or are bothersome): constipation difficulty walking or controlling muscle movements dizziness nausea slurred speech tiredness tremors weight gain What may interact with this medicine? Do not take this medicine with any of the following medications: other gabapentin products This medicine may also interact with the following medications: alcohol antacids antihistamines for allergy, cough and cold certain medicines for anxiety or sleep certain medicines for depression or psychotic disturbances homatropine; hydrocodone naproxen narcotic medicines (opiates) for pain phenothiazines like chlorpromazine, mesoridazine, prochlorperazine, thioridazine What if I miss a dose? If you miss a dose, take it as soon as you can. If it is almost time for your next dose, take only that dose. Do not take double or extra doses. Where should I keep my medicine? Keep out of reach of children. Store at room temperature between 15 and 30 degrees C (59 and 86 degrees F). Throw away any unused medicine after the expiration date. What should I tell my health care provider before I take this medicine? They need to know if you have any of these conditions: kidney disease suicidal thoughts, plans, or attempt; a previous suicide attempt by you or a family member an unusual or allergic reaction to gabapentin, other medicines, foods, dyes, or preservatives or trying to get breast-feeding What should I watch for while using this medicine? Visit your doctor or health cardiac care nurse for regular checks on your progress. You may want to keep a record at home of how you feel your condition is responding to treatment. You may want to share this information with your doctor or health cardiac care nurse at each visit. You should contact your doctor or health cardiac care nurse if your seizures get worse or if you have any new types of seizures. Do not stop taking this medicine or any of your seizure medicines unless instructed by your doctor or health cardiac care nurse. Stopping your medicine suddenly can increase your seizures or their severity. Wear a medical identification bracelet or chain if you are taking this medicine for seizures, and carry a card that lists all your medications. You may get drowsy, dizzy, or have blurred vision. Do not drive, use machinery, or do anything that needs mental alertness until you know how this medicine affects you. To reduce dizzy or fainting spells, do not sit or stand up quickly, especially if you are an older patient. Alcohol can increase drowsiness and dizziness. Avoid alcoholic drinks. Your mouth may get dry. Chewing sugarless gum or sucking hard candy, and drinking plenty of water will help. The use of this medicine may increase the chance of suicidal thoughts or actions. Pay special attention to how you are responding while on this medicine. Any worsening of mood, or thoughts of suicide or dying should be reported to your health cardiac care nurse right away. Women who become while using this medicine may enroll in the [place] Drug Registry by calling . This registry collects information about the safety of antiepileptic drug use during . You have been given the following additional information: Abrasion Neuropathy, Peripheral Mupirocin Topical ointment Gabapentin Oral tablet (Electronically signed by Ruben Jarquin Dr. 05/24/2016 22:01)
--- NOTE | 2016-05-24 22:02 | ED MAR SUMMARY ---
..... Medication Administration Record [facility] [address] [place] [address] Patient: EDITH JUAN Visit ID: [id number] 80y, M Weight: 102.0 kg Height/Length: 72 in BMI: 30.5 ALLERGIES: No Known Drug Allergy Start 09:06 05/24/2016 Nancie Diaz,, Stop 15:05/24/2016 Nancie Diaz, Medication Administered: IV NS (SALINE), Dose: IV Fluids, Bolus: 500 mL wide open, Dispensed: 500 mL bag, Site: #1 left AC. Medication Ordered: IV NS : initial bolus 500 mL (1000 mL/hr), then 125 mL/hr for 4h (NOW); Urgent. Start 10:44 05/24/2016 Nancie Diaz,, Stop 15:01 05/24/2016 Nancie Diaz, Medication Administered: IV NS (SALINE), Dose: IV Fluids over 1 hour(s), Rate: 200 mL/hr, Dispensed: 1000 mL bag, Site: #1 left AC. Medication Ordered: IV NS : initial bolus none -, then 200 mL/hr for X1 (NOW).
== END 2016-05-24 15:30 | disposition home or self-care (01) ==
LOC: ED SRH 08:00
DX: T68.XXXA Hypothermia, initial encounter (principal); S80.211A Abrasion, right knee, initial encounter; S80.212A Abrasion, left knee, initial encounter; X31.XXXA Exposure to excessive natural cold, initial encounter; Y93.89 Activity, other specified; Y92.009 Unspecified place in unspecified non-institutional (private) residence as the place of occurrence of the external cause; Y99.8 Other external cause status; I10 Essential (primary) hypertension; E11.9 Type 2 diabetes mellitus without complications; Z79.84 Long term (current) use of oral hypoglycemic drugs